=== PATIENT | female | born 1995 ===

== ENCOUNTER 2021-05-01 09:16 | Outpatient (REF) | payer BC, SELFPAY ==
--- NOTE | 2021-05-01 08:00 | PAPFT_PTH ---
PATIENT: Alyx Crowley LOC: [facility] U#:[id number] AGE/SX: 25/F ROOM: RE05/01/[address]: Samira Cartwright : 1995 BED: DIS: 05/01/2021 SPEC #: [id number] RECD: 05/04/21 13:03 STATUS: CLEMENTE REJosh #: [id number] GUILLE: 05/01/21 08:[address]: Samira Cartwright DEPT: [facility] Cytology RECD BY: Leatha Doran Tissues: 1 - CX/ENDOCX FOR PAP SMEARS Procedures: PAP THIN PREP/[facility] Screening Comments: [id number]
== END 2021-05-01 09:17 | disposition home or self-care (01) ==
LOC: NCHCN 09:16
PROVIDERS: Visit Provider Registered Nurse
DX: Z12.4 Encounter for screening for malignant neoplasm of cervix (principal)
CPT/HCPCS: 88142